=== PATIENT | male | born 1995 | race Caucasian/White ===

== ENCOUNTER → 2022-06-19 08:15 | Outpatient (CLI) | payer BC, SELFPAY ==
--- NOTE | ~2022-06-19 | US_ITS ---
EXAMINATION: US soft tissue head and neck DATE: 06/19/2022 08:30 INDICATION: Right posterior neck mass. TECHNIQUE: Multiple grayscale and Doppler ultrasound images of the neck were obtained. COMPARISON: None FINDINGS: There is a normal superficial lymph node in the patient's area of concern in right posterio r neck. IMPRESSION: 1. Normal superficial lymph node in the patient's area of concern in right posterior neck. Reviewed, dictated and finalized at location A. [facility] [employer] IMPRESSION: 1. Normal superficial lymph node in the patient's area of concern in right post erior neck.
== END ==
PROVIDERS: PCP Family Medicine; Visit Provider Family Medicine
DX: R22.1 Localized swelling, mass and lump, neck (principal)
CPT/HCPCS: 76536